=== PATIENT | female | born 2000 ===

== ENCOUNTER 2021-06-17 08:38 | Outpatient (CLI) | payer OTHER | END 2021-06-17 08:39 | disposition home or self-care (01) | LOC: CSHULT 08:38 | PROVIDERS: ATTEND Internal Medicine Gastroenterology | DX: R10.13 Epigastric pain (principal); R14.2 Eructation; D64.9 Anemia, unspecified; R19.7 Diarrhea, unspecified | CPT/HCPCS: 76705 ==